=== PATIENT | male | born 1965 | race Caucasian/White ===

== ENCOUNTER 2018-09-25 17:49 | Outpatient (REF) | payer BC, SELFPAY ==
[2018-09-25 22:06] LABS: Anion Gap 11.1 mmol/L (3-11); BUN 13 mg/dL (7-18); CO2 26.9 mmol/L (21.0-32.0); CREATININE 1.08 mg/dL (0.70-1.30); Calcium 9.3 mg/dL (8.5-10.1); Calculated LDL 84 mg/dL; Chloride 101 mmol/L (98-107); Cholesterol 175 mg/dL (50-200); Glucose 98 mg/dL (70-100); HDL Cholesterol 49 mg/dL (40-60); Potassium 4.6 mmol/L (3.5-5.1); Sodium 139 mmol/L (136-145); Triglyceride 210 mg/dL (30-150)
== END 2018-09-25 18:09 ==
LOC: NCHCN 17:49
PROVIDERS: PCP Internal Medicine; Visit Provider Specialist/Technologist Athletic Trainer
DX: Z00.00 Encounter for general adult medical examination without abnormal findings (principal); Z13.220 Encounter for screening for lipoid disorders; Z13.228 Encounter for screening for other metabolic disorders
CPT/HCPCS: 80048; 80061; 83721

== ENCOUNTER 2020-10-26 17:17 | Outpatient (REF) | payer SELFPAY ==
[2020-10-26 19:30] LABS: Anion Gap 11.5 mmol/L (3-11); BUN 14 mg/dL (7-18); CO2 27.5 mmol/L (21.0-32.0); Calcium 8.7 mg/dL (8.5-10.1); Calculated LDL 117 mg/dL (<100); Chloride 97 mmol/L (98-107); Cholesterol 200 mg/dL (<200); Glucose 81 mg/dL (74-106); HDL Cholesterol 53 mg/dL (40-60); Potassium 4.1 mmol/L (3.5-5.1); Sodium 136 mmol/L (136-145); Triglyceride 153 mg/dL (<150)
[2020-10-27 00:45] LABS: Vitamin D 25 Total 40.1 ng/mL (30-100)
== END 2020-10-26 17:18 | disposition home or self-care (01) ==
LOC: NCHCN 17:17
PROVIDERS: PCP Internal Medicine; Visit Provider Nurse Practitioner Family
DX: E55.9 Vitamin D deficiency, unspecified (principal); I10 Essential (primary) hypertension; E78.5 Hyperlipidemia, unspecified
CPT/HCPCS: 80048; 80061; 82306

== ENCOUNTER 2021-11-24 16:34 | Outpatient (REF) | payer BC, SELFPAY ==
[2021-11-24 19:59] LABS: BUN 13 mg/dL (7-18); CREATININE 0.8 mg/dL (0.70-1.30); Calcium 9.1 mg/dL (8.5-10.1); Calculated LDL 109 mg/dL (<100); Chloride 99 mmol/L (98-107); Cholesterol 189 mg/dL (<200); Estimated GFR 102.58 (mL/min/1.73m2); Glucose 87 mg/dL (74-106); HDL Cholesterol 52 mg/dL (40-60); Potassium 3.6 mmol/L (3.5-5.1); Sodium 137 mmol/L (136-145); Triglyceride 144 mg/dL (<150)
[2021-11-27 05:37] LABS: Vitamin D 25 Total 24.2 ng/mL (30-100)
== END 2021-11-24 16:35 | disposition home or self-care (01) ==
LOC: NCHCN 16:34
PROVIDERS: PCP Internal Medicine; Visit Provider Nurse Practitioner Family
DX: I10 Essential (primary) hypertension (principal); E78.5 Hyperlipidemia, unspecified; E55.9 Vitamin D deficiency, unspecified
CPT/HCPCS: 80048; 80061; 82306

== ENCOUNTER 2022-11-27 17:44 | Outpatient (REF) | payer BC, SELFPAY ==
[2022-11-27 19:10] LABS: ALT 33 U/L (16-63); AST 29 U/L (15-37); Albumin 3.5 g/dL (3.4-5.0); Alkaline Phosphatase 79 U/L (46-116); Anion Gap 11.6 mmol/L (3-11); BUN 17 mg/dL (7-18); Bilirubin, Total 0.8 mg/dL (0.2-1.0); CO2 24.4 mmol/L (21.0-32.0); CREATININE 1.1 mg/dL (0.70-1.30); Calcium 9.5 mg/dL (8.5-10.1); Calculated LDL 102 mg/dL (<100); Chloride 96 mmol/L (98-107); Cholesterol 186 mg/dL (<200); Estimated GFR 77.33 (mL/min/1.73m2); Glucose 97 mg/dL (74-106); HDL Cholesterol 60 mg/dL (40-60); Potassium 3.7 mmol/L (3.5-5.1); Sodium 132 mmol/L (136-145); Total Protein 7.7 g/dL (6.4-8.2); Triglyceride 124 mg/dL (<150)
== END 2022-11-27 17:45 | disposition home or self-care (01) ==
LOC: NCHCN 17:44
PROVIDERS: PCP Internal Medicine; Visit Provider Nurse Practitioner Family
DX: Z00.00 Encounter for general adult medical examination without abnormal findings (principal); I10 Essential (primary) hypertension; E78.5 Hyperlipidemia, unspecified
CPT/HCPCS: 80053; 80061

== ENCOUNTER 2023-12-09 15:21 | Outpatient (REF) | payer BC, SELFPAY ==
[2023-12-09 19:26] LABS: ALT 26 U/L (16-63); AST 26 U/L (15-37); Albumin 3.5 g/dL (3.4-5.0); Alkaline Phosphatase 91 U/L (46-116); Anion Gap 8.2 mmol/L (3-11); BUN 14 mg/dL (7-18); Bilirubin, Total 0.53 mg/dL (0.2-1.0); CO2 28.8 mmol/L (21.0-32.0); Calcium 9.8 mg/dL (8.5-10.1); Calculated LDL 92 mg/dL (<100); Chloride 100 mmol/L (98-107); Cholesterol 189 mg/dL (<200); Estimated GFR 86.16 (mL/min/1.73m2); Glucose 98 mg/dL (74-106); HDL Cholesterol 59 mg/dL (40-60); Potassium 4.5 mmol/L (3.5-5.1); Sodium 137 mmol/L (136-145); Total Protein 7.7 g/dL (6.4-8.2); Triglyceride 194 mg/dL (<150)
[2023-12-09 20:30] LABS: Vitamin D 25 Total 14.7 ng/mL (30-100)
[2023-12-11 11:04] LABS: Hepatitis C Ab w Rflx HCV PCR Negative (Negative)
[2023-12-11 11:08] LABS: HIV-1/2 Ag & Ab Screen Negative (Negative)
== END 2023-12-09 15:22 | disposition home or self-care (01) ==
LOC: NCHCN 15:21
PROVIDERS: PCP Nurse Practitioner Family; Visit Provider Nurse Practitioner Family
DX: Z00.00 Encounter for general adult medical examination without abnormal findings (principal); E78.5 Hyperlipidemia, unspecified; E55.9 Vitamin D deficiency, unspecified
CPT/HCPCS: 80053; 80061; 82306; 86803; 87389

== ENCOUNTER 2024-12-28 14:50 | Outpatient (REF) | payer BC, SELFPAY ==
[2024-12-28 16:05] LABS: Hemoglobin A1C 5.3 % (<5.7)
[2024-12-28 16:30] LABS: ALT 28 U/L (16-63); AST 23 U/L (15-37); Albumin 3.5 g/dL (3.4-5.0); Alkaline Phosphatase 86 U/L (46-116); Anion Gap 11.2 mmol/L (3-11); BUN 17 mg/dL (7-18); Bilirubin, Total 0.7 mg/dL (0.2-1.0); CO2 26.8 mmol/L (21.0-32.0); Calcium 9.2 mg/dL (8.5-10.1); Chloride 99 mmol/L (98-107); Estimated GFR 97.17 (mL/min/1.73m2); Glucose 103 mg/dL (74-106); Potassium 3.8 mmol/L (3.5-5.1); Sodium 137 mmol/L (136-145); Total Protein 7.3 g/dL (6.4-8.2); Vitamin D 25 Total 33 ng/mL (30-100)
== END 2024-12-28 14:51 | disposition home or self-care (01) ==
LOC: NCHCN 14:50
PROVIDERS: PCP Nurse Practitioner Family; Visit Provider Nurse Practitioner Family
DX: Z00.00 Encounter for general adult medical examination without abnormal findings (principal); I10 Essential (primary) hypertension; E55.9 Vitamin D deficiency, unspecified
CPT/HCPCS: 80053; 82306; 83036